=== PATIENT | female | born 1995 | race Caucasian/White ===

== ENCOUNTER 2017-08-27 01:03 | Emergency (ER) | payer BC ==
[~2017-08-27] VITALS: Ht 149.9 cm; Wt 49.4 kg
[2017-08-27] MEDS ORDERED: GUAIFENESIN (01:15)
[2017-08-27] MEDS ORDERED: FLUTICASONE PROP 50 MCG SPRAY (01:15)
[2017-08-27] MEDS ORDERED: AZITHROMYCIN 250 MG TABLET (01:15)
[2017-08-27] MEDS ORDERED: CODEINE (01:15)
[2017-08-27] MEDS ORDERED: ALBU8HFA4 INH (01:17)
[2017-08-27] MEDS ORDERED: FLUT10.62 IH (01:17)
[2017-08-27] MEDS: ALBUTEROL SULFATE 2.5 MG/3 ML NEBU NEB ONE (01:46)
[2017-08-27] MEDS ORDERED: ALBUTEROL SULFATE 2.5 MG/3 ML NEBU ONE (02:00)
[2017-08-27] MEDS: BENZONATATE 100 MG CAPSULE PO ONE (02:29)
[2017-08-27] MEDS: IBUPROFEN 600 MG TABLET PO ONE (02:29)
[2017-08-27] MEDS ORDERED: BENZONATATE 100 MG CAPSULE ONE (02:41)
[2017-08-27] MEDS ORDERED: IBUPROFEN 600 MG TABLET ONE (02:41)
--- NOTE | 2017-08-27 03:05 | NUR ---
Patient discharged to home in stable conditon. Written and verbal after care instructions given. Patient verbalizes understanding of instructions. PATIENT LEFT WITH STABLE GAIT.
[2017-08-27 03:07] VITALS: BP 113/76
== END 2017-08-27 03:07 | disposition home or self-care (01) ==
LOC: ER 01:06
DX: J20.8 Acute bronchitis due to other specified organisms (principal); Z88.0 Allergy status to penicillin
CPT/HCPCS: 71010; 94640; 99283; A4663

== ENCOUNTER 2021-09-06 20:31 | Emergency (ER) | payer BC, MEDICAID ==
[~2021-09-06 20:31] MED LIST: ALBU8HFA4 INH; AZITHROMYCIN 250 MG TABLET; CODEINE; FLUT10.62 IH; FLUTICASONE PROP 50 MCG SPRAY; GUAIFENESIN
--- NOTE | 2021-09-06 20:50 | NUR ---
PATIENT WAS CALLED TO BE TRIAGED BUT WAS NOT PRESENT IN THE WAITING ROOM.
--- NOTE | 2021-09-06 21:15 | NUR ---
PATIENT WAS CALLED TO BE TRIAGED BUT WAS NOT PRESENT IN THE WAITING ROOM.
--- NOTE | 2021-09-06 21:30 | NUR ---
PATIENT WAS NOT SEEN BY ERMD OR TRIAGED
== END 2021-09-06 21:30 | disposition left against medical advice (07) ==
LOC: ER 20:33
DX: Z53.21 Procedure and treatment not carried out due to patient leaving prior to being seen by health care provider (principal)